=== PATIENT | male | born 1960 | race African-American/Black ===

== ENCOUNTER 2018-11-05 07:10 | Emergency (ER) | payer MEDICARE, OTHER ==
[~2018-11-05] VITALS: Ht 180.3 cm; Wt 75.3 kg
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
--- NOTE | 2018-11-05 07:48 | NUR ---
SEEN BY DR LI
[2018-11-05] MEDS ORDERED: BACI/NEOM/POLY B OINT PKT 1 UDPKT PACKET TP ONE (08:00)
[2018-11-05] MEDS ORDERED: TDAP [DIPH/PERTUSSIS/TET] 0.5 ML VIAL IM ONE ×2 (08:00→08:06)
[2018-11-05] MEDS ORDERED: BACI/NEOM/POLY B OINT PKT 1 UDPKT PACKET ONE (08:06)
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
--- NOTE | 2018-11-05 08:43 | NUR ---
BREAKFAST TRAY PROVIDED, PT TOLERATING PO WELL
--- NOTE | 2018-11-05 09:00 | NUR ---
SERAFIN SLAUGHTER AT BEDSIDE
[2018-11-05 09:13] VITALS: BP 128/80
--- NOTE | 2018-11-05 09:14 | NUR ---
Patient given written and verbal discharge instructions. Patient verbalizes understanding of instructions. Patient is ambulatory with steady gait. Refuses offer of penitentiary placement. Patient given list of available shelters in surrounding area. Patient signed homeless waiver form, in proper clothing upon discharge, nameband removed.
--- NOTE | 2018-11-05 09:15 | NUR ---
ASSISTED PATIENT TO WAITING ROOM FOR TAP CARD
--- NOTE | 2018-11-05 09:42 | NUR ---
TAP CARD PROVIDED IN THE WAITING ROOM.
== END 2018-11-05 09:45 | disposition home or self-care (01) ==
LOC: ER 07:13
DX: S61.012A Laceration without foreign body of left thumb without damage to nail, initial encounter (principal); Y04.0XXA Assault by unarmed brawl or fight, initial encounter; Y93.89 Activity, other specified; Y92.89 Other specified places as the place of occurrence of the external cause; Y99.8 Other external cause status
CPT/HCPCS: 12001; 90471; 90715; 99283; A6403